=== PATIENT | female | born 1975 | race Caucasian/White ===

== ENCOUNTER 2017-01-13 21:34 | Emergency (ER) | payer MEDICAID ==
[~2017-01-13] VITALS: Ht 165.1 cm; Wt 108.0 kg
[2017-01-13 22:20] VITALS: BP_SYST 132
[2017-01-13] MEDS ORDERED: PROMETHAZINE HCL 50 MG/ML AMP IM ONE (23:00)
[2017-01-13] MEDS ORDERED: HYDROmorphone 1 MG INJ. 1 MG/ML AMPUL IM ONE (23:00)
[2017-01-13 23:45] VITALS: BP_SYST 126
== END 2017-01-13 23:45 | disposition home or self-care (01) ==
LOC: SED 21:34
DX: G43.909 Migraine, unspecified, not intractable, without status migrainosus (principal); Z88.6 Allergy status to analgesic agent; Z88.8 Allergy status to other drugs, medicaments and biological substances
CPT/HCPCS: 96372; 99284; J1170; J2550

== ENCOUNTER 2017-02-09 21:40 | Emergency (ER) | payer MEDICAID ==
[~2017-02-09] VITALS: Ht 165.1 cm; Wt 108.0 kg
[2017-02-09 22:12] VITALS: BP_SYST 148
--- NOTE | 2017-02-09 22:27 | NUR ---
Patient to ER bed 03 to gown for evaluation. Side rails up.
--- NOTE | 2017-02-09 22:40 | NUR ---
MD barnett at bedside examining pt
[2017-02-09] MEDS ORDERED: HYDROmorphone 1 MG INJ. 1 MG/ML AMPUL IM ONE (22:45)
[2017-02-09] MEDS ORDERED: PROMETHAZINE HCL 50 MG/ML AMP IM ONE (22:45)
--- NOTE | 2017-02-09 22:45 | NUR ---
Pt presents to ED with c/o headache 10/10, nausea, and photophobia . A&Ox4, denies SOB or chestpain, denies N/V/D. Skin intact. Will continue to monitor
[2017-02-10 00:15] VITALS: BP_SYST 140
--- NOTE | 2017-02-10 00:27 | NUR ---
Patient given written and verbal discharge instructions and verbalizes understanding. ER MD Tolentino discussed with patient the results and treatment provided.\\ ID arm band removed. No rx given. Patient educated on pain management and to follow up with PMD. Pain Scale 0/10. Opportunity for questions provided and answered.
== END 2017-02-10 00:15 | disposition home or self-care (01) ==
LOC: SED 21:40
DX: G43.909 Migraine, unspecified, not intractable, without status migrainosus (principal); Z88.1 Allergy status to other antibiotic agents; Z88.8 Allergy status to other drugs, medicaments and biological substances
CPT/HCPCS: 81025; 96372; 99284; J1170; J2550